=== PATIENT | male | born 1930 | race Caucasian/White ===

== ENCOUNTER → 2016-09-19 | Outpatient (CLI) | payer MEDICARE ==
[~2016-09-19] MED LIST: AMIODARONE HCL400 MG PO; ANTIVERT12.5 MG PO; ASPIR-LOW81 MG PO; CHEWABLE ASPIRI81 MG PO; FINASTERIDE5 M1 PO; HEART PO; LORTAB 5/500 501 TAB PO; MECLIZINE25 MG PO; PRAVACHOL20 MG PO; PROSTATE PO; RAMIPRIL 2.5 MG PO; RAMIPRIL2.5 M1 PO; TAMSULOSIN HCL0.4 MG PO; ZOFRAN4 MG PO
== END ==
LOC: RT 12:58
DX: R94.31 Abnormal electrocardiogram [ECG] [EKG] (principal)